=== PATIENT | female | born 1935 ===

== ENCOUNTER 2017-01-23 20:50 | Inpatient (IN) | payer MEDICARE, MEDICAID ==
[2017-01-23 20:54] VITALS: BMI 29.2
--- NOTE | 2017-01-23 21:03 | ED PDOC ---
Arrival/HPI - General Chief Complaint: Respiratory Distress Time Seen by Provider: 01/23/17 20:55 Historian: Patient - History of Present Illness Narrative History of Present Illness (Text): 01/23/17 21:03 Era Morgan is an 81 year old female, whose past medical history includes asthma , diabetes, and hypertension, who presents to the Emergency department complaining of worsening shortness of breath since yesterday. Relative reports associated cough and chest pain. Relative states symptoms are consistent with patient's previous episodes of asthma and notes patient had nebulizer treatments at home but denies any significant relief. Patient denies any fever, chills, nausea, vomiting, diarrhea, urinary symptoms, back pain, neck pain, headache, dizziness, or any other complaints. Time/Duration: Other (yesterday) Symptom Onset: Gradual Symptom Course: Worsening Activities at Onset: Rest, Light Context: Home Past Medical History - Provider Review Nursing Documentation Reviewed: Yes - Cardiac Hx Hypertension: Yes - Pulmonary Hx Asthma: Yes - Psychiatric Hx Substance Use: No Family/Social History - Physician Review Nursing Documentation Reviewed: Yes Family/Social History: No Known Family HX Smoking Status: n Hx Alcohol Use: No Hx Substance Use: No Allergies/Home Meds Allergies/Adverse Reactions: Allergies No Known Allergies Allergy (Verified 01/23/17 20:53) Home Medications: Home Meds Medication Instructions Recorded Confirmed Albuterol Sulfate [Proair Hfa] 200 puff IH PRN PRN 01/23/17 01/23/17 Beclomethasone Dipropionate [Qvar 1 puff IH DAILY 01/23/17 01/23/17 40 mcg] Budesonide/Formoterol Fumarate 1 aer IH DAILY 01/23/17 01/23/17 [Symbicort] amLODIPine [Norvasc] 10 mg PO DAILY 01/23/17 01/23/17 Review of Systems - Physician Review All systems were reviewed & negative as marked: Yes - Review of Systems Constitutional: Normal. absent: Fevers Eyes: Normal ENT: Normal Respiratory: SOB, Cough Cardiovascular: Chest Pain Gastrointestinal: Normal. absent: Abdominal Pain, Diarrhea, Nausea, Vomiting Genitourinary Female: Normal. absent: Dysuria, Frequency, Hematuria, Urine Output Changes Musculoskeletal: Normal. absent: Back Pain, Neck Pain Skin: Normal. absent: Rash Neurological: Normal. absent: Headache, Dizziness Endocrine: Normal Hemo/Lymphatic: Normal Psychiatric: Normal Physical Exam Vital Signs Reviewed: Yes Vital Signs Temp Pulse Resp BP Pulse Ox 01/24/17 01:05 83 18 152/76 H 94 L 01/24/17 00:05 81 19 176/76 H 94 L 01/23/17 21:50 97.9 F 62 18 145/77 98 01/23/17 20:55 20 93 L Temperature: Afebrile Blood Pressure: Normal Pulse: Regular Respiratory Rate: Normal Appearance: Positive for: Well-Appearing, Non-Toxic, Comfortable Pain Distress: None Mental Status: Positive for: Alert and Oriented X 3 - Systems Exam Head: Present: Atraumatic, Normocephalic Pupils: Present: PERRL Extroacular Muscles: Present: EOMI Conjunctiva: Present: Normal Mouth: Present: Moist Mucous Membranes Neck: Present: Normal Range of Motion Respiratory/Chest: Present: Wheezes. No: Respiratory Distress, Accessory Muscle Use Cardiovascular: Present: Regular Rate and Rhythm, Normal S1, S2. No: Murmurs Abdomen: Present: Normal Bowel Sounds. No: Tenderness, Distention, Peritoneal Signs Back: Present: Normal Inspection Upper Extremity: Present: Normal Inspection. No: Cyanosis, Edema Lower Extremity: Present: Normal Inspection. No: Edema Neurological: Present: GCS=15, CN II-XII Intact, Speech Normal Skin: Present: Warm, Dry, Normal Color. No: Rashes Psychiatric: Present: Alert, Oriented x 3, Normal Insight, Normal Concentration Medical Decision Making ED Course and Treatment: 01/23/17 21:03 Impression: 81 year old female complaining of worsening shortness of breath, cough, and chest pain since yesterday. Plan: -- EKG -- Chest X-ray -- Labs, cardiac enzymes, BNP, VBG, blood culture -- Duoneb -- Solu-medrol -- Reassess and disposition Progress Notes: Reviewed EKG, sinus rhythm at 83 bpm. Non-specific ST/T wave changes. 01/23/17 22:34 Reviewed radiology, Chest X-ray shows no acute processes. 01/23/17 23:20 Case discussed with medical tech supervisor reclamation, who is aware and verbalizes understanding. 01/23/17 23:[address] Vaughan, who is aware and agrees with plan. Accepts pt in to hospitalist service. Pt will go to Telemetry observation for asthma and chest pain. - Lab Interpretations Microbiology Results: Microbiology Results 01/23/17 22:10 Blood-Venous Blood Culture - Preliminary NO GROWTH AFTER 48 HOURS 01/23/17 21:45 Blood-Venous Blood Culture - Preliminary NO GROWTH AFTER 48 HOURS Lab Results: 01/24/17 05:44 01/24/17 05:44 Lab Results 01/24/17 16:00: POC Glucose (mg/dL) 326 H 01/24/17 10:58: POC Glucose (mg/dL) 418 H* 01/24/17 07:50: Procalcitonin < 0.05 L 01/24/17 07:17: POC Glucose (mg/dL) 394 H 01/24/17 05:44: WBC 9.1 D, RBC 4.82, Hgb 13.1, Hct 40.8, MCV 84.6, MCH 27.2, MCHC 32.1, RDW 14.2, Plt Count 242, MPV 10.6, Gran % 92.8 H, Lymph % (Auto) 6.6 L, [place] % (Auto) 0.4 L, Eos % (Auto) 0.0 L, Baso % (Auto) 0.2, Gran # 8.45 H, Lymph # 0.6 L, [place] # 0.0 L, Eos # 0.0, Baso # 0.02 01/24/17 05:44: Sodium 137, Chloride 99, Potassium 4.6, Carbon Dioxide 27, Anion Gap 16, BUN 13, Creatinine 0.6, Est GFR ( Amer) > 60, Est GFR (Non- Af Amer) > 60, Random Glucose 438 H* D, Calcium 9.6 01/24/17 05:44: Vitamin B12 296 01/24/17 05:44: Troponin I 0.02 D 01/24/17 05:44: TSH 3rd Generation 0.49 01/24/17 05:44: Hemoglobin A1c 10.3 H 01/24/17 00:50: pO2 165 H, VBG pH 7.40, VBG pCO2 50.0, VBG HCO3 31.0 H, VBG Total CO2 32.5 H, VBG O2 Sat (Calc) 98.5 H, VBG Base Excess 5.0 H, VBG Potassium 4.0, Sodium 138.0, Chloride 102.0, Glucose 347 H, Lactate 2.2 H, FiO2 21.0, Venous Blood Potassium 4.0 01/23/17 22:09: PT 10.4, INR 0.96, APTT 26.1 01/23/17 21:25: Sodium 138, Chloride 98, Potassium 3.9, Carbon Dioxide 29, Anion Gap 15, BUN 12, Creatinine 0.6, Est GFR ( Amer) > 60, Est GFR (Non- Af Amer) > 60, Random Glucose 307 H*, Calcium 9.8, Total Bilirubin 0.5, AST 24, ALT 38, Alkaline Phosphatase 112, Lactate Dehydrogenase 525, Total Creatine Kinase 90, Troponin I < 0.01, NT-Pro-B Natriuret Pep 160, Total Protein 8.0, Albumin 4.0, Globulin 4.0, Albumin/Globulin Ratio 1.0 L 01/23/17 21:25: pO2 109 H, VBG pH 7.37, VBG pCO2 53.0, VBG HCO3 30.6 H, VBG Total CO2 32.2 H, VBG O2 Sat (Calc) 98.2 H, VBG Base Excess 4.0 H, VBG Potassium 4.0, Sodium 136.0, Chloride 104.0, Glucose 310 H, Lactate 2.2 H, FiO2 21.0, Venous Blood Potassium 4.0 01/23/17 21:25: WBC 12.2 H, RBC 4.88, Hgb 13.6, Hct 41.6, MCV 85.2, MCH 27.9, MCHC 32.7, RDW 14.2, Plt Count 204, MPV 9.9, Gran % 63.5, Lymph % (Auto) 23.5, [place] % (Auto) 9.0 H, Eos % (Auto) 3.7, Baso % (Auto) 0.3, Gran # 7.72 H, Lymph # 2.9, [place] # 1.1 H, Eos # 0.5, Baso # 0.04 I have reviewed the lab results: Yes - RAD Interpretation Radiology Orders: 01/23/17 21:23 CHEST PORTABLE [RAD] Stat 01/24/17 00:54 ANGIO CHEST PE PROTOCOL [CT] Stat Assistant Professor Of Communication: ED Physician - EKG Interpretation Interpreted by ED Physician: Yes Type: 12 lead EKG - Medication Orders Current Medication Orders: Acetaminophen (Tylenol 325mg Tab) 650 mg PO Q4H PRN PRN Reason: Fever >100.4 F Last Admin: 01/26/17 06:09 Dose: 650 mg Re-Assess: MICHEL Pain/Vitals Document 01/26/17 07:09 MJO (Rec: 01/26/17 08:11 MJO [id number]) Pain Reassessment Is This A Pain ReAssessment? Yes Sleep Is patient sleeping during reassessment? No Presence of Pain Presence of Pain No Albuterol Sulfate (Albuterol 0.042% Inhal Do (1.25mg/3ml) Ud) 1.25 mg IH Q3 PRN PRN Reason: Shortness of Breath Albuterol/Ipratropium (Duoneb 3 Mg/0.5 Mg (3 Ml) Ud) 3 ml IH [id number] [facility] Last Admin: 01/26/17 15:17 Dose: 3 ml Amlodipine Besylate (Norvasc) 10 mg PO DAILY [facility] Last Admin: 01/26/17 09:18 Dose: 10 mg Budesonide (Pulmicort Respules) 0.5 mg IH [id number] [facility] Last Admin: 01/26/17 07:22 Dose: 0.5 mg Diphenhydramine HCl (Benadryl) 25 mg PO HS PRN PRN Reason: Insomnia Last Admin: 01/25/17 21:57 Dose: 25 mg Doxycycline Hyclate (Doryx) 100 mg PO Q12 JASMINA PRN Reason: Protocol Last Admin: 01/26/17 09:18 Dose: 100 mg Enoxaparin Sodium (Lovenox) 40 mg SC DAILY JASMINA PRN Reason: Protocol Last Admin: 01/26/17 09:18 Dose: 40 mg Insulin Detemir (Levemir) 7 unit SC Q12 [facility] Last Admin: 01/26/17 09:22 Dose: 7 unit Insulin Human Regular (Humulin R Med) 0 units SC ACHS JASMINA PRN Reason: Protocol Last Admin: 01/26/17 16:07 Dose: 8 units Methylprednisolone (Solu-Medrol) 40 mg IVP Q8H [facility] Last Admin: 01/26/17 14:16 Dose: 40 mg Pantoprazole Sodium (Protonix Ec Tab) 40 mg PO ACB [facility] Last Admin: 01/26/17 08:11 Dose: 40 mg Discontinued Medications Acetaminophen (Tylenol 325mg Tab) 650 mg PO Q6H PRN PRN Reason: Fever >100.4 F Last Admin: 01/24/17 03:01 Dose: 650 mg Albuterol Sulfate (Albuterol 0.5% Inhal Do (2.5 Mg/0.5 Ml) Ud) 2.5 mg IH [id number] [facility] Last Admin: 01/24/17 08:00 Dose: 2.5 mg Albuterol/Ipratropium (Duoneb 3 Mg/0.5 Mg (3 Ml) Ud) 3 ml IH Q15M [facility] Last Admin: 01/23/17 21:55 Dose: 3 ml Arformoterol Tartrate (Brovana) 15 mcg IH [id number] [facility] Last Admin: 01/24/17 08:00 Dose: 15 mcg Levofloxacin/Dextrose (Levaquin 750mg) 750 mg in 150 mls @ 100 mls/hr IVPB STAT STA Stop: 01/24/17 00:12 Last Admin: 01/23/17 22:56 Dose: 100 mls/hr Insulin Detemir (Levemir) 5 unit SC Q12 JASMINA Last Admin: 01/25/17 09:39 Dose: 5 unit Insulin Human Regular (Humulin R Low) 0 units SC ACHS JASMINA PRN Reason: Protocol Last Admin: 01/24/17 12:18 Dose: 7 units Iodixanol (Visipaque 320 Mg/Ml 100 Ml) Confirm Administered Dose 100 ml IV .STK- MED ONE Stop: 01/24/17 01:44 Methylprednisolone (Solu-Medrol) 125 mg IVP STAT STA Stop: 01/23/17 21:21 Last Admin: 01/23/17 21:38 Dose: 125 mg Methylprednisolone (Solu-Medrol) 40 mg IVP Q12 [facility] Last Admin: 01/24/17 10:05 Dose: 40 mg - Scribe Statement The provider has reviewed the documentation as recorded by the Scribwilian Munguia All medical record entries made by the Scribwilian were at my direction and personally dictated by me. I have reviewed the chart and agree that the record accurately reflects my personal performance of the history, physical exam, medical decision making, and the department course for this patient. I have also personally directed, reviewed, and agree with the discharge instructions and disposition. Disposition/Present on Arrival - Present on Arrival Any Indicators Present on Arrival: No History of DVT/PE: No History of Uncontrolled Diabetes: No Urinary Catheter: No History of Decub. Ulcer: No History Surgical Site Infection Following: None - Disposition Have Diagnosis and Disposition been Completed?: Yes Diagnosis: Asthma exacerbation Disposition: HOSPITALIZED Disposition Time: 23:00 Condition: FAIR
[2017-01-23] MEDS: Albuterol-Ipratrop 3 mg / 0.5 (3 ml) UD IH SCH ×3 (21:15→21:55)
[2017-01-23 21:38] LABS: ADD MANUAL DIFF? NO
[2017-01-23 21:56] LABS: ALKALINE PHOSPHATASE 112 U/L (38-133); ALT/SGPT 38 U/L (7-56); AST/SGOT 24 U/L (15-39); BILIRUBIN,TOTAL 0.5 mg/dL (0.2-1.3); BLOOD UREA NITROGEN 12 mg/dL (7-21); CALCIUM 9.8 mg/dL (8.4-10.5); CARBON DIOXIDE 29 mmol/L (21-33); CHLORIDE 98 mmol/L (98-107); GFR AFRICAN-AMERICAN > 60; POTASSIUM 3.9 mmol/L (3.6-5.0); SODIUM 138 mmol/L (132-148)
[2017-01-23 22:00] LABS: VENOUS BLOOD PH 7.37 (7.32-7.43)
[2017-01-23 22:05] LABS: GLUCOSE,RANDOM 307 mg/dL (70-110)
[2017-01-23 22:11] LABS: TROPONIN I < 0.01 ng/mL
[2017-01-23 22:17] LABS: BASO # 0.04 K/mm3 (0.0-2.0); BASO % 0.3 % (0.0-3.0); EOS # 0.5 (0.0-0.7); EOS % 3.7 % (1.5-5.0); GRAN # 7.72 (1.4-6.5); GRAN % 63.5 % (50.0-68.0); HEMATOCRIT 41.6 % (36.0-48.0); LYMPH # 2.9 (1.2-3.4); LYMPH % 23.5 % (22.0-35.0); MEAN CELL VOLUME 85.2 fL (80.0-105.0); MEAN CORPUSCULAR HEMOGLOBIN 27.9 pg (25.0-35.0); MEAN CORPUSCULAR HGB CONC 32.7 g/dl (31.0-37.0); MEAN PLATELET VOLUME 9.9 fl (7.0-11.0); MONO # 1.1 (0.1-0.6); PLATELET COUNT 204 10^3/uL (120.0-450.0); RED CELL DISTRIBUTION WIDTH 14.2 % (11.5-14.5); WHITE BLOOD COUNT 12.2 10^3/ul (4.5-11.0)
[2017-01-23] MEDS ORDERED: levoFLOXacin 750 mg in D5W 750 MG/150 ML BAG IVPB STA (22:43)
[2017-01-23 22:50] LABS: INR 0.96 (0.93-1.08)
[2017-01-23 22:54] LABS: PARTIAL THROMBOPLASTIN TIME 26.1 Seconds (23.7-30.8)
[2017-01-24] MEDS ORDERED: Albuterol 0.042% Inhal Sol (1.25 mg/3 mL) UD IH PRN (01:36)
[2017-01-24] MEDS ORDERED: Iodixanol 320 MG/ML 100 ML BOTTLE IV ONE (01:43)
[2017-01-24] MEDS: Albuterol 0.5% Inhal Sol (2.5 mg/0.5 ml) UD IH SCH ×2 (03:04→08:00)
--- NOTE | 2017-01-24 03:14 | CT ---
EXAM: CT Angiography Chest With Intravenous Contrast CLINICAL HISTORY: 81 years old, female; Signs and symptoms; Shortness of breath TECHNIQUE: Axial computed tomographic angiography images of the chest with intravenous contrast using pulmonary embolism protocol. This CT exam was performed using one or more of the following dose reduction techniques: automated exposure control, adjustment of the mA and/or kV according to patient size, and/or use of iterative reconstruction technique. MIP reconstructed images were created and reviewed. Coronal and sagittal reformatted images were created and reviewed. CONTRAST: 96 mL of VISI 320 administered intravenously. COMPARISON: CR - CHEST PORTABLE 01/23/2017 9:32:45 PM FINDINGS: Limitations: Motion artifact - mild to moderate. Pulmonary arteries: No definite pulmonary embolism. Aorta: Mild atherosclerotic disease of aorta. No aortic aneurysm. Lungs: Mild atelectasis/scarring, most pronounced LEFT lung base. Apparent 0.5 cm spiculated RIGHT upper lobe nodule. Mild mosaic pattern of lung parenchyma. Mild interlobular septal thickening. Pleural space: No significant effusion. No pneumothorax. Heart: Borderline cardiomegaly. No significant pericardial effusion. Mediastinum: Small hiatal hernia. Thyroid: Heterogeneity of thyroid gland. Bones/joints: Degenerative changes of spine. Curvature of spine. No acute fracture. Soft tissues: Unremarkable. Lymph nodes: No pathologically enlarged lymph nodes. Kidneys and ureters: Few probable renal cysts. IMPRESSION: 1. No definite CT evidence of pulmonary embolism. 2. Possible early interstitial edema. Clinical correlation is needed. 3. Pulmonary nodule, indeterminate. Followup as clinically warranted. 4. Incidental/non-acute findings are described above.
--- NOTE | 2017-01-24 03:19 | CP.PCM.HP ---
<Alireza Peña - Last Filed: 01/24/17 02:56> History of Present Illness - History of Present Illness History of Present Illness: 81 year old female with past medical history of asthma, hypertension, diabetes, and PE presents to [facility] complaining of worsening shortness and coughs. Patient 's daughter was present to provide history and German interpretation. Patient developed shortness of breath, chest pain, wheezes and coughs 1 day ago while patient was resting. Patient is visiting her daughter at [place] from [facility] 1 week ago. Per daughter, patient's symptoms are similar to previous asthma exacerbations but never this severe. Patient have used her asthmatic medications at home but all provided no relief. Patient was never intubated in past. Patient was admitted to [facility] in [facility] for PE 1 year ago. She was place on blood thinner for 6 months and currently not taking any blood thinner medications. At baseline, patient becomes shortness of breath whenever she ambulates. In the ED, patient received one dose of solumedrol IV which improved her symptoms. Patient denies headache, weakness, fever, chills, nausea , vomiting, diarrhea, constipation, or sick contacts at home. PMD: Dr. Quick PMHx: asthma, hypertension, diabetes, and PE PSHx: tubal ligation Allergy: NKDA Social: denies tobacco, alcohol or other drug use Family: Mother-asthma Home meds: Norvasc, montelukast, vanumet, symblcort, proair Present on Admission - Present on Admission Any Indicators Present on Admission: Yes History of DVT/PE: Yes History of Uncontrolled Diabetes: No Review of Systems - Constitutional Constitutional: As Per HPI. absent: Fever, Headache, Lethargy - EENT Eyes: As Per HPI. absent: Blind Spots, Discharge, Dry Eye Ears: As Per HPI. absent: Dizziness Nose/Mouth/Throat: As Per HPI. absent: Nasal Discharge, Sinus Pain, Dry Mouth - Cardiovascular Cardiovascular: As Per HPI. absent: Lightheadedness, Syncope - Respiratory Respiratory: As Per HPI, Cough, Dyspnea, Wheezing, Chest Congestion. absent: Hemoptysis - Gastrointestinal Gastrointestinal: As Per HPI. absent: Constipation, Diarrhea, Nausea, Vomiting - Genitourinary Genitourinary: As Per HPI. absent: Urinary Incontinence, Urinary Frequency, Urinary Hesitance - Musculoskeletal Musculoskeletal: As Per HPI. absent: Back Pain, Numbness, Tingling - Integumentary Integumentary: As Per HPI. absent: Dry Skin, Erythema, Lesions - Neurological Neurological: As Per HPI. absent: Dizziness, Numbness, Syncope, Tingling, Tremor - Psychiatric Psychiatric: As Per HPI. absent: Confusion, Depression, Hallucinations, Memory Loss - Endocrine Endocrine: As Per HPI. absent: Polydipsia, Polyphagia, Polyuria - Hematologic/Lymphatic Hematologic: As Per HPI Past Patient History - Past Social History Smoking Status: n - CARDIAC Hx Hypertension: Yes - PULMONARY Hx Asthma: Yes - PSYCHIATRIC Hx Substance Use: No Meds Allergies/Adverse Reactions: Allergies Allergy/AdvReac Type Severity Reaction Status Date / Time No Known Allergies Allergy Verified 01/23/17 20:53 Physical Exam - Constitutional Appears: Non-toxic, No Acute Distress - Head Exam Head Exam: ATRAUMATIC, NORMAL INSPECTION, NORMOCEPHALIC - Eye Exam Eye Exam: EOMI, Normal appearance, PERRL - ENT Exam ENT Exam: Mucous Membranes Moist - Neck Exam Neck exam: Positive for: Normal Inspection - Respiratory Exam Respiratory Exam: Clear to Auscultation Bilateral, NORMAL BREATHING PATTERN. absent: Respiratory Distress - Cardiovascular Exam Cardiovascular Exam: REGULAR RHYTHM, +S1, +S2 - GI/Abdominal Exam GI & Abdominal Exam: Normal Bowel Sounds, Soft. absent: Tenderness - Extremities Exam Extremities exam: Positive for: normal capillary refill, normal inspection, pedal edema, pedal pulses present - Back Exam Back exam: NORMAL INSPECTION - Neurological Exam Neurological exam: Alert, CN II-XII Intact, Oriented x3 - Psychiatric Exam Psychiatric exam: Normal Affect, Normal Mood - Skin Skin Exam: Dry, Normal Color, Warm Results - Vital Signs Recent Vital Signs: Last Vital Signs Temp 97.9 F 01/23/17 21:50 Pulse 83 01/24/17 01:05 Resp 18 01/24/17 01:05 BP 152/76 H 01/24/17 01:05 Pulse Ox 94 L 01/24/17 01:05 - Labs Result Diagrams: 01/23/17 21:25 01/23/17 21:25 Labs: Laboratory Results - last 24 hr 01/23/17 01/23/17 01/23/17 21:25 21:25 21:25 WBC 12.2 H RBC 4.88 Hgb 13.6 Hct 41.6 MCV 85.2 MCH 27.9 MCHC 32.7 RDW 14.2 Plt Count 204 MPV 9.9 Gran % 63.5 Lymph % (Auto) 23.5 [place] % (Auto) 9.0 H Eos % (Auto) 3.7 Baso % (Auto) 0.3 Gran # 7.72 H Lymph # 2.9 [place] # 1.1 H Eos # 0.5 Baso # 0.04 PT INR APTT pO2 109 H VBG pH 7.37 VBG pCO2 53.0 VBG HCO3 30.6 H VBG Total CO2 32.2 H VBG O2 Sat (Calc) 98.2 H VBG Base Excess 4.0 H VBG Potassium 4.0 Sodium 136.0 138 Chloride 104.0 98 Glucose 310 H Lactate 2.2 H FiO2 21.0 Potassium 3.9 Carbon Dioxide 29 Anion Gap 15 BUN 12 Creatinine 0.6 Est GFR ( Amer) > 60 Est GFR (Non-Af Amer) > 60 Random Glucose 307 H* Calcium 9.8 Total Bilirubin 0.5 AST 24 ALT 38 Alkaline Phosphatase 112 Lactate Dehydrogenase 525 Total Creatine Kinase 90 Troponin I < 0.01 NT-Pro-B Natriuret Pep 160 Total Protein 8.0 Albumin 4.0 Globulin 4.0 Albumin/Globulin Ratio 1.0 L Venous Blood Potassium 4.0 01/23/17 01/24/17 22:09 00:50 WBC RBC Hgb Hct MCV MCH MCHC RDW Plt Count MPV Gran % Lymph % (Auto) [place] % (Auto) Eos % (Auto) Baso % (Auto) Gran # Lymph # [place] # Eos # Baso # PT 10.4 INR 0.96 APTT 26.1 pO2 165 H VBG pH 7.40 VBG pCO2 50.0 VBG HCO3 31.0 H VBG Total CO2 32.5 H VBG O2 Sat (Calc) 98.5 H VBG Base Excess 5.0 H VBG Potassium 4.0 Sodium 138.0 Chloride 102.0 Glucose 347 H Lactate 2.2 H FiO2 21.0 Potassium Carbon Dioxide Anion Gap BUN Creatinine Est GFR ( Amer) Est GFR (Non-Af Amer) Random Glucose Calcium Total Bilirubin AST ALT Alkaline Phosphatase Lactate Dehydrogenase Total Creatine Kinase Troponin I NT-Pro-B Natriuret Pep Total Protein Albumin Globulin Albumin/Globulin Ratio Venous Blood Potassium 4.0 Assessment & Plan - Assessment and Plan (Free Text) Assessment: 81 year old female with past medical history of asthma, HTN, DM and PE was admitted for shortness of breath likely secondary to asthma exacerbation Plan: Shortness of breath -likely Asthma exacerbation vs PNA -Received solumedrol and levaquin in the ED -CXR showed no active disease -CT chest showed no evidence of PE, possible early interstitial edema, indeterminate pulmonary nodule (please see full report) -Albuterol 1.25mg q3/2.5mg q6 prn -pulmicort 0.5mg q12h -Brovana 15mcg q12h -Prednisone 40mg po -Follow up echocardiogram -Follow up TSH Leukocytosis -WBC 12.2, afebrile -Follow up blood culture Diabetes -Currently not on DM meds -Consistent carbohydrate diet -Pending A1c -FS ACHS Hypertension -Resume home Norvasc Prophylactic measures -Protonix for GI ppx -Lovenox for DVT ppx <Butch Vaughan P - Last Filed: 02/03/17 19:38> Results - Vital Signs Recent Vital Signs: Last Vital Signs Temp 98.1 F 01/28/17 08:00 Pulse 71 01/28/17 09:55 Resp 19 01/28/17 08:00 BP 140/63 01/28/17 09:55 Pulse Ox 94 L 01/28/17 08:00 - Labs Result Diagrams: 01/28/17 06:30 01/28/17 06:30 Attending/Attestation - Attestation I have personally seen and examined this patient.: Yes I have fully participated in the care of the patient.: Yes I have reviewed all pertinent clinical information: Yes
[2017-01-24 06:43] LABS: ADD MANUAL DIFF? NO
[2017-01-24 06:53] LABS: BLOOD UREA NITROGEN 13 mg/dL (7-21); CALCIUM 9.6 mg/dL (8.4-10.5); CARBON DIOXIDE 27 mmol/L (21-33); CHLORIDE 99 mmol/L (98-107); GFR AFRICAN-AMERICAN > 60; POTASSIUM 4.6 mmol/L (3.6-5.0); SODIUM 137 mmol/L (132-148)
[2017-01-24 07:03] LABS: BASO # 0.02 K/mm3 (0.0-2.0); BASO % 0.2 % (0.0-3.0); GRAN # 8.45 (1.4-6.5); GRAN % 92.8 % (50.0-68.0); HEMATOCRIT 40.8 % (36.0-48.0); LYMPH # 0.6 (1.2-3.4); LYMPH % 6.6 % (22.0-35.0); MEAN CELL VOLUME 84.6 fL (80.0-105.0); MEAN CORPUSCULAR HEMOGLOBIN 27.2 pg (25.0-35.0); MEAN CORPUSCULAR HGB CONC 32.1 g/dl (31.0-37.0); MEAN PLATELET VOLUME 10.6 fl (7.0-11.0); MONO % 0.4 % (1.0-6.0); PLATELET COUNT 242 10^3/uL (120.0-450.0); RED CELL DISTRIBUTION WIDTH 14.2 % (11.5-14.5); WHITE BLOOD COUNT 9.1 10^3/ul (4.5-11.0)
[2017-01-24 07:30] LABS: GLUCOSE,RANDOM 438 mg/dL (70-110)
[2017-01-24] MEDS: Pantoprazole 40 mg EC Tab PO SCH (07:45)
[2017-01-24] MEDS ORDERED: Arformoterol 15 mcg/2 ml Inh Sol IH SCH (08:00)
[2017-01-24] MEDS: Budesonide 0.5 mg/2 ml Inhal Susp UD IH SCH (08:00)
--- NOTE | 2017-01-24 08:18 | RAD ---
HISTORY: sob COMPARISON: No prior. FINDINGS: LUNGS: No active pulmonary disease. PLEURA: No significant pleural effusion identified, no pneumothorax apparent. CARDIOVASCULAR: Mild cardiomegaly OSSEOUS STRUCTURES: No significant abnormalities. VISUALIZED UPPER ABDOMEN: Normal. OTHER FINDINGS: None. IMPRESSION: No active disease.
[2017-01-24] MEDS ORDERED: cefTRIAXone 1 gm 1 GM/100 ML BAG IVPB SCH (10:00)
[2017-01-24] MEDS ORDERED: MethylPREDNISolone 40 mg Vial IVP SCH (10:00)
[2017-01-24] MEDS: Enoxaparin 40 mg Syringe SC SCH (10:05)
--- NOTE | 2017-01-24 10:41 | CARD ---
APPROVED REPORT EKG Measurement Heart [id number] <Conclusion> Sinus rhythm with premature supraventricular complexes Nonspecific ST and T wave abnormality
[2017-01-24] MEDS ORDERED: Insulin Reg-LOW-Coverage SC SCH (11:30)
[2017-01-24] MEDS: Albuterol-Ipratrop 3 mg / 0.5 (3 ml) UD IH SCH ×3 (15:01→23:11)
--- NOTE | 2017-01-24 15:18 | CON ---
DATE: 01/24/2017 This is an 81-year-old lady with history of diabetes and asthma who presented to [facility], [place] with a 2-day history of increased shortness of breath , wheezing, cough with some whitish sputum production. The amount and quality of sputum increased. Her exercise tolerance decreased. Her symptoms progressed to the point that she was seeking medical attention at [facility], [place]. No fever, no chills, no sweats, no nausea, no vomiting, no diarrhea. Some pleuritic chest pain which prompted a CAT scan of the chest to be performed. It did not reveal any pulmonary embolism; however, showed 0.5 cm nodule in the right upper lobe as well as some scar/atelectasis in the left lower lobe. PAST MEDICAL HISTORY: Diabetes, asthma. MEDICATIONS: Albuterol, Symbicort, Norvasc. FAMILY HISTORY: Noncontributory. SOCIAL HISTORY: The patient is a lifelong nonsmoker. No alcohol, no illicit drug abuse. REVIEW OF SYSTEMS: Revealed 12 organ system other than mentioned in history of present illness is negative. ALLERGIES: NKDA. PHYSICAL EXAMINATION: VITAL SIGNS: Temperature 98.3, blood pressure 153/77, heart rate 77, respiratory rate 19, oxygen saturation 96% on nasal cannula. HEAD AND NECK: Atraumatic. LUNGS: Scattered wheezes bilaterally, plenty. HEART: Regular rate and rhythm. S1, S2 normal. ABDOMEN: Soft, nontender, nondistended. MUSCULOSKELETAL: No C/C/E. NEUROLOGIC: The patient moves all extremities spontaneously. SKIN: Moist. PSYCHIATRIC: The patient is alert and oriented x 3. LABORATORY DATA: WBC 9.1, hemoglobin 13.1, platelet count 242. Sodium 137, potassium 4.6, chloride 99, carbon dioxide 27, BUN 13, creatinine 0.6, glucose 438, calcium 9.6. Troponin 0.02 x 2 negative. TSH 0.49. VBG showed lactic acid 2.2. CURRENT MEDICATIONS: Tylenol p.r.n., DuoNeb every 6, Norvasc, Brovana, Pulmicort, doxycycline, Lovenox 40 mg subcutaneously daily, regular insulin sliding scale medium protocol, Solu-Medrol 40 mg IV q. 12, Protonix. CAT scan of the chest showed no definite CT evidence of pulmonary embolism and possible early interstitial edema. Clinical correlation is needed. Pulmonary nodule, indeterminate, followup is clinically warranted. Echocardiogram was performed and report is pending. EKG showed no specific ischemic changes. Sinus rhythm with premature supraventricular complexes. ASSESSMENT AND PLAN: This is an 81-year-old lady who presented with asthma exacerbation in the setting of questionable community-acquired pneumonia. I will proceed with antibiotics, steroid taper, bronchodilators. I would continue with inhaled corticosteroids. I will continue with bronchodilators. Blood glucose has to be controlled a little bit better. I would increase coverage to high sliding scale, and add basal long acting insulin. In terms of her 0.5 mm spiculated nodule, it has to be followed as an outpatient. I would repeat CAT scan in about 3 months. Differential diagnosis includes scar tissue and infectious etiology. Malignancy cannot be ruled out and thus a CAT scan in 3 months would be recommended. Even though it is less than 6 mm nodule stability over 2 year period has to be established. The patient needs to be seen by pulmonary doctor to follow up on the nodule on an outpatient basis. Echocardiogram is pending. ProBNP is not elevated. I would hold diuretics at present time. Troponin x 2 negative. EKG did not show any specific ischemic changes. I would continue to target euvolemia, euglycemia, normothermia and oxygen saturation more than 90%. I will continue with deep venous thrombosis and gastrointestinal prophylaxis. Antony Pak MD cc: [id number] TT: 01/24/2017 15:17:39 Confirmation # [id number] Dictation # [id number] kristopher PASTOR
[2017-01-24] MEDS: MethylPREDNISolone 40 mg Vial IVP SCH ×2 (15:55→22:32)
[2017-01-24] MEDS: Insulin Reg-MEDIUM-Coverage SC SCH ×2 (16:55→22:26)
[2017-01-25] MEDS: Albuterol-Ipratrop 3 mg / 0.5 (3 ml) UD IH SCH ×5 (04:00→20:24)
[2017-01-25] MEDS: Budesonide 0.5 mg/2 ml Inhal Susp UD IH SCH ×2 (07:17→20:25)
[2017-01-25] MEDS: MethylPREDNISolone 40 mg Vial IVP SCH ×3 (08:00→22:04)
[2017-01-25] MEDS: Pantoprazole 40 mg EC Tab PO SCH (08:01)
[2017-01-25 08:05] LABS: ADD MANUAL DIFF? NO
[2017-01-25 08:06] LABS: BASO # 0.01 K/mm3 (0.0-2.0); BASO % 0.1 % (0.0-3.0); GRAN # 14.23 (1.4-6.5); GRAN % 89.1 % (50.0-68.0); HEMATOCRIT 40.1 % (36.0-48.0); LYMPH # 1.2 (1.2-3.4); LYMPH % 7.6 % (22.0-35.0); MEAN CELL VOLUME 83.4 fL (80.0-105.0); MEAN CORPUSCULAR HEMOGLOBIN 27.4 pg (25.0-35.0); MEAN CORPUSCULAR HGB CONC 32.9 g/dl (31.0-37.0); MEAN PLATELET VOLUME 10.1 fl (7.0-11.0); MONO # 0.5 (0.1-0.6); MONO % 3.2 % (1.0-6.0); PLATELET COUNT 241 10^3/uL (120.0-450.0); RED CELL DISTRIBUTION WIDTH 14.2 % (11.5-14.5)
[2017-01-25] MEDS: Insulin Reg-MEDIUM-Coverage SC SCH ×4 (08:30→21:57)
[2017-01-25 09:14] LABS: ALB/GLOB RATIO 1.1 (1.1-1.8); ALKALINE PHOSPHATASE 107 U/L (38-133); ALT/SGPT 37 U/L (7-56); AST/SGOT 24 U/L (15-39); BILIRUBIN,TOTAL 0.6 mg/dL (0.2-1.3); BLOOD UREA NITROGEN 24 mg/dL (7-21); CALCIUM 9.9 mg/dL (8.4-10.5); CARBON DIOXIDE 28 mmol/L (21-33); CHLORIDE 100 mmol/L (98-107); GFR AFRICAN-AMERICAN > 60; POTASSIUM 4.3 mmol/L (3.6-5.0); SODIUM 138 mmol/L (132-148); TOTAL PROTEIN 7.4 g/dL (5.8-8.3)
[2017-01-25 09:25] LABS: GLUCOSE,RANDOM 407 mg/dL (70-110)
[2017-01-25] MEDS: Enoxaparin 40 mg Syringe SC SCH (09:38)
[2017-01-25] MEDS ORDERED: Insulin Detemir 100 units/ml Vial (Levemir) SC SCH (10:00)
--- NOTE | 2017-01-25 10:46 | CARD ---
APPROVED REPORT EXAM: Two-dimensional and M-mode echocardiogram with Doppler and color Doppler. Other Information Quality : GoodRhythm : INDICATION Dyspnea 2D DIMENSIONS Left Atrium (2D)4.3 (1.6-4.0cm)IVSd1.2 (0.7-1.1cm) LVDd4.3 (3.9-5.9cm)PWd1.2 (0.7-1.1cm) LVDs2.6 (2.5-4.0cm)FS (%) 40.6 % LVEF (%)71.0 (>50%) M-Mode DIMENSIONS Aortic Root3.40 (2.2-3.7cm)Aortic Cusp Exc.1.60 (1.5-2.0cm) Aortic Valve AoV Peak Cloytlfw264.0cm/sAoV VTI46.6cmLVOT Peak Regezdls535.0cm/s LVOT VTI39.00cm Mitral Valve MV E Oarokupw34.5cm/sMV A Tjfcbidy549.0cm/sE/A ratio0.7 TDI Lateral E' Peak V6.82cm/sMedial E' Peak V6.97cm/sE/Lateral E'12.0 E/Medial E'11.7 Pulmonary Valve PV Peak Ldbggtzy49.3cm/sPV Peak Grad.3mmHg Tricuspid Valve TR Peak Fuvyhuvj315ko/sRAP VDKJNWNS28ybLgCC Peak Gr.44mmHg [id number] LEFT VENTRICLE The left ventricle is normal size. There is mild concentric left ventricular hypertrophy. The left ventricular function is normal. The left ventricular ejection fraction is within the normal range. There is normal LV segmental wall motion. RIGHT VENTRICLE The right ventricle is normal size. ATRIA The left atrium is mildly dilated. The right atrium size is normal. The interatrial septum is intact with no evidence for an atrial septal defect. AORTIC VALVE The aortic valve is mildly calcified. MITRAL VALVE The mitral valve is normal in structure. Mitral regurgitation is trace. TRICUSPID VALVE The tricuspid valve is normal in structure. There is mild to moderate tricuspid regurgitation. There is moderate pulmonary hypertension. PULMONIC VALVE The pulmonic valve is not well visualized. GREAT VESSELS The aortic root is normal in size. PERICARDIAL EFFUSION There is no pericardial effusion. <Conclusion> The left ventricle is normal size. There is mild concentric left ventricular hypertrophy. The left ventricular function is normal. There is mild to moderate tricuspid regurgitation. There is moderate pulmonary hypertension.
--- NOTE | 2017-01-25 13:35 | CP.PCM.PN ---
Subjective - Date & Time of Evaluation Date of Evaluation: 01/25/17 Time of Evaluation: 13:15 - Subjective Subjective: 81 Y/O F seen sitting up in bed w/o distress talking to her neighbor No acute events overnight No productive sputum. SOB improved and patient is able to walk in her room. Still has some baseline wheezing. Objective - Vital Signs/Intake and Output Vital Signs (last 24 hours): Temp Pulse Resp BP Pulse Ox 98.6 F 72 20 146/76 93 L 01/25/17 12:00 01/25/17 12:00 01/25/17 12:00 01/25/17 12:00 01/25/17 06:00 Intake and Output: 01/25/17 01/25/17 06:59 18:59 Intake Total 360 Balance 360 - Medications Medications: Current Medications Acetaminophen (Tylenol 325mg Tab) 650 mg PO Q4H PRN PRN Reason: Fever >100.4 F Last Admin: 01/24/17 06:32 Dose: 650 mg Albuterol Sulfate (Albuterol 0.042% Inhal Do (1.25mg/3ml) Ud) 1.25 mg IH Q3 PRN PRN Reason: Shortness of Breath Albuterol/Ipratropium (Duoneb 3 Mg/0.5 Mg (3 Ml) Ud) 3 ml IH [id number] [facility] Last Admin: 01/25/17 11:46 Dose: 3 ml Amlodipine Besylate (Norvasc) 10 mg PO DAILY [facility] Last Admin: 01/25/17 09:38 Dose: 10 mg Budesonide (Pulmicort Respules) 0.5 mg IH [id number] [facility] Last Admin: 01/25/17 07:17 Dose: 0.5 mg Diphenhydramine HCl (Benadryl) 25 mg PO HS PRN PRN Reason: Insomnia Last Admin: 01/24/17 22:27 Dose: 25 mg Doxycycline Hyclate (Doryx) 100 mg PO Q12 [facility] PRN Reason: Protocol Last Admin: 01/25/17 09:38 Dose: 100 mg Enoxaparin Sodium (Lovenox) 40 mg SC DAILY [facility] PRN Reason: Protocol Last Admin: 01/25/17 09:38 Dose: 40 mg Insulin Detemir (Levemir) 7 unit SC Q12 [facility] Insulin Human Regular (Humulin R Med) 0 units SC ACHS [facility] PRN Reason: Protocol Last Admin: 01/25/17 12:09 Dose: 8 units Methylprednisolone (Solu-Medrol) 40 mg IVP Q8H [facility] Last Admin: 01/25/17 08:00 Dose: 40 mg Pantoprazole Sodium (Protonix Ec Tab) 40 mg PO ACB [facility] Last Admin: 01/25/17 08:01 Dose: 40 mg - Labs Labs: 01/25/17 08:00 01/25/17 08:00 PT 10.4 Seconds (9.9-11.8) 01/23/17 22:09 INR 0.96 (0.93-1.08) 01/23/17 22:09 APTT 26.1 Seconds (23.7-30.8) 01/23/17 22:09 - Constitutional Appears: Well - Head Exam Head Exam: ATRAUMATIC, NORMAL INSPECTION - Eye Exam Eye Exam: EOMI, Normal appearance Pupil Exam: NORMAL ACCOMODATION, PERRL - ENT Exam ENT Exam: Mucous Membranes Moist, Normal Exam - Neck Exam Neck Exam: Normal Inspection - Respiratory Exam Respiratory Exam: Clear to Ausculation Bilateral, Wheezes - Cardiovascular Exam Cardiovascular Exam: REGULAR RHYTHM - GI/Abdominal Exam GI & Abdominal Exam: Soft, Normal Bowel Sounds - Rectal Exam Rectal Exam: NORMAL INSPECTION - Extremities Exam Extremities Exam: Full ROM - Back Exam Back Exam: NORMAL INSPECTION Assessment and Plan - Assessment and Plan (Free Text) Assessment: 81 y/o F w/ Asthma Exacerbation possibly in the setting of URI On empiric abx w/ cx pending. Viral panel sent. On ICH and Albuterol prn. Continue Solumedrol BID as the patient is still wheezing between nebulizer treatments. Would need PFT post 2 weeks of discharge to quantify her Asthma and monitor her control medications. At home was on Advair bid , Albuterol Inhaler and Nebs. F/U CT chest due to Fleischner guidelines .
--- NOTE | 2017-01-25 15:55 | CP.PCM.PN ---
<Jyoti Crowe - Last Filed: 01/25/17 16:34> Subjective - Date & Time of Evaluation Date of Evaluation: 01/25/17 Time of Evaluation: 11:00 - Subjective Subjective: PGY-1 Medicine progress note Patient seen and examined at bedside. No acute distress. Patient states that she is doing better and is no longer SOB. She denies any chest pain, abd pain, fever, chill, n/v. She reports occasional headache. Patient is tolerating diet. Objective - Vital Signs/Intake and Output Vital Signs (last 24 hours): Temp Pulse Resp BP Pulse Ox 98.6 F 72 20 146/76 93 L 01/25/17 12:00 01/25/17 12:00 01/25/17 12:00 01/25/17 12:00 01/25/17 06:00 Intake and Output: 01/25/17 01/25/17 06:59 18:59 Intake Total 360 Balance 360 - Medications Medications: Current Medications Acetaminophen (Tylenol 325mg Tab) 650 mg PO Q4H PRN PRN Reason: Fever >100.4 F Last Admin: 01/24/17 06:32 Dose: 650 mg Albuterol Sulfate (Albuterol 0.042% Inhal Do (1.25mg/3ml) Ud) 1.25 mg IH Q3 PRN PRN Reason: Shortness of Breath Albuterol/Ipratropium (Duoneb 3 Mg/0.5 Mg (3 Ml) Ud) 3 ml IH [id number] [facility] Last Admin: 01/25/17 15:52 Dose: 3 ml Amlodipine Besylate (Norvasc) 10 mg PO DAILY [facility] Last Admin: 01/25/17 09:38 Dose: 10 mg Budesonide (Pulmicort Respules) 0.5 mg IH [id number] [facility] Last Admin: 01/25/17 07:17 Dose: 0.5 mg Diphenhydramine HCl (Benadryl) 25 mg PO HS PRN PRN Reason: Insomnia Last Admin: 01/24/17 22:27 Dose: 25 mg Doxycycline Hyclate (Doryx) 100 mg PO Q12 [facility] PRN Reason: Protocol Last Admin: 01/25/17 09:38 Dose: 100 mg Enoxaparin Sodium (Lovenox) 40 mg SC DAILY [facility] PRN Reason: Protocol Last Admin: 01/25/17 09:38 Dose: 40 mg Insulin Detemir (Levemir) 7 unit SC Q12 [facility] Insulin Human Regular (Humulin R Med) 0 units SC ACHS [facility] PRN Reason: Protocol Last Admin: 01/25/17 12:09 Dose: 8 units Methylprednisolone (Solu-Medrol) 40 mg IVP Q8H [facility] Last Admin: 01/25/17 15:06 Dose: 40 mg Pantoprazole Sodium (Protonix Ec Tab) 40 mg PO ACB [facility] Last Admin: 01/25/17 08:01 Dose: 40 mg - Labs Labs: 01/25/17 08:00 01/25/17 08:00 PT 10.4 Seconds (9.9-11.8) 01/23/17 22:09 INR 0.96 (0.93-1.08) 01/23/17 22:09 APTT 26.1 Seconds (23.7-30.8) 01/23/17 22:09 - Constitutional Appears: Well, No Acute Distress - Head Exam Head Exam: ATRAUMATIC, NORMOCEPHALIC - Eye Exam Eye Exam: Normal appearance - ENT Exam ENT Exam: Mucous Membranes Moist - Respiratory Exam Respiratory Exam: Wheezes (throughout lung field ), NORMAL BREATHING PATTERN. absent: Rales, Rhonchi, Respiratory Distress - Cardiovascular Exam Cardiovascular Exam: REGULAR RHYTHM. absent: Tachycardia, Murmur - GI/Abdominal Exam GI & Abdominal Exam: Soft, Normal Bowel Sounds. absent: Distended, Firm, Tenderness - Extremities Exam Extremities Exam: Normal Inspection. absent: Pedal Edema - Neurological Exam Neurological Exam: Alert, Awake, Oriented x3 - Skin Skin Exam: Dry, Intact, Normal Color, Warm Assessment and Plan - Assessment and Plan (Free Text) Assessment: 81 year old female with past medical history of asthma, HTN, DM and PE was admitted for asthma exacerbation, with possible infection. Plan: 1. Asthma exacerbation - conts to having wheezes - CXR showed no active disease - CT chest showed no evidence of PE, possible early interstitial edema, indeterminate pulmonary nodule (please see full report) - cont Albuterol 1.25mg q3/2.5mg q6 prn - cont pulmicort 0.5mg q12h, Brovana 15mcg q12h - cont solu- medrol 40 mg q8 - echo showed EF of 71%, moderate pulmonary HTN, mild left ventricular hypertrophy - TSH wnl - pulm following - outpatient CT chest in 3 mo for pulm nodule 2. Leukocytosis - WBC 16, afebrile, most likely due to steroids - blood culture neg after 24 ho - procal low - cont doxycylcine 3. Diabetes - not on home meds - Consistent carbohydrate diet - hgbA1c 10.3 - started levemir 7 units q12 - ISSS- med - diabetic education on injectable insulin 4. Hypertension - cont home Norvasc pt transferred to med/surg floor Prophylactic measures -Protonix for GI ppx -Lovenox for DVT ppx <Nenita Crocker B - Last Filed: 01/26/17 15:16> Objective - Vital Signs/Intake and Output Vital Signs (last 24 hours): Temp Pulse Resp BP Pulse Ox 97.9 F 78 18 151/86 H 96 01/26/17 07:30 01/26/17 07:30 01/26/17 07:30 01/26/17 09:18 01/26/17 07:30 Intake and Output: 01/26/17 01/26/17 06:59 18:59 Intake Total 600 Balance 600 - Medications Medications: Current Medications Acetaminophen (Tylenol 325mg Tab) 650 mg PO Q4H PRN PRN Reason: Fever >100.4 F Last Admin: 01/26/17 06:09 Dose: 650 mg Albuterol Sulfate (Albuterol 0.042% Inhal Do (1.25mg/3ml) Ud) 1.25 mg IH Q3 PRN PRN Reason: Shortness of Breath Albuterol/Ipratropium (Duoneb 3 Mg/0.5 Mg (3 Ml) Ud) 3 ml IH [id number] [facility] Last Admin: 01/26/17 11:25 Dose: 3 ml Amlodipine Besylate (Norvasc) 10 mg PO DAILY [facility] Last Admin: 01/26/17 09:18 Dose: 10 mg Budesonide (Pulmicort Respules) 0.5 mg IH [id number] [facility] Last Admin: 01/26/17 07:22 Dose: 0.5 mg Diphenhydramine HCl (Benadryl) 25 mg PO HS PRN PRN Reason: Insomnia Last Admin: 01/25/17 21:57 Dose: 25 mg Doxycycline Hyclate (Doryx) 100 mg PO Q12 [facility] PRN Reason: Protocol Last Admin: 01/26/17 09:18 Dose: 100 mg Enoxaparin Sodium (Lovenox) 40 mg SC DAILY [facility] PRN Reason: Protocol Last Admin: 01/26/17 09:18 Dose: 40 mg Insulin Detemir (Levemir) 7 unit SC Q12 [facility] Last Admin: 01/26/17 09:22 Dose: 7 unit Insulin Human Regular (Humulin R Med) 0 units SC ACHS [facility] PRN Reason: Protocol Last Admin: 01/26/17 11:45 Dose: 10 units Methylprednisolone (Solu-Medrol) 40 mg IVP Q8H [facility] Last Admin: 01/26/17 06:09 Dose: 40 mg Pantoprazole Sodium (Protonix Ec Tab) 40 mg PO ACB [facility] Last Admin: 01/26/17 08:11 Dose: 40 mg - Labs Labs: 01/26/17 08:11 01/26/17 08:11 PT 10.4 Seconds (9.9-11.8) 01/23/17 22:09 INR 0.96 (0.93-1.08) 01/23/17 22:09 APTT 26.1 Seconds (23.7-30.8) 01/23/17 22:09 Attending/Attestation - Attestation I have personally seen and examined this patient.: Yes I have fully participated in the care of the patient.: Yes I have reviewed all pertinent clinical information, including history, physical exam and plan: Yes Notes (Text): I have seen and examined the patient at bedside. This is 81 year old female with past medical history of asthma, HTN, DM and PE who got admitted for asthma exacerbation. She continues to have significant wheezing. Will increase steroids to TID. Continue duonebs, pulmicort and brovana. Pulmonary consult appreciated. She was also found to have solitary lung nodule 5 mm spiculated. She needs to have a repeat CT chest in 3months for surveillance. Upon admission , she had a leukocytosis. Continue doxycycline. Also found to have uncontrolled DM. HBA1C is 10.3. Levemir 7 units q12 added. Diabetic counselling given. She needs to learn how to self inject insulin. Discussed with the daughter in detail. Dr Nenita Crocker
[2017-01-25] MEDS: Insulin Detemir 100 units/ml Vial (Levemir) SC SCH (21:58)
[2017-01-26] MEDS: Albuterol-Ipratrop 3 mg / 0.5 (3 ml) UD IH SCH ×7 (01:24→23:42)
[2017-01-26] MEDS: MethylPREDNISolone 40 mg Vial IVP SCH ×3 (06:09→22:01)
[2017-01-26] MEDS: Budesonide 0.5 mg/2 ml Inhal Susp UD IH SCH ×2 (07:22→21:07)
[2017-01-26] MEDS: Insulin Reg-MEDIUM-Coverage SC SCH ×4 (08:11→21:35)
[2017-01-26] MEDS: Pantoprazole 40 mg EC Tab PO SCH (08:11)
[2017-01-26 08:22] LABS: BASO # 0.01 K/mm3 (0.0-2.0); BASO % 0.1 % (0.0-3.0); GRAN # 16.03 (1.4-6.5); GRAN % 91.6 % (50.0-68.0); HEMATOCRIT 38.8 % (36.0-48.0); LYMPH # 0.9 (1.2-3.4); LYMPH % 5.4 % (22.0-35.0); MEAN CELL VOLUME 82.7 fL (80.0-105.0); MEAN CORPUSCULAR HEMOGLOBIN 27.3 pg (25.0-35.0); MEAN PLATELET VOLUME 10.5 fl (7.0-11.0); MONO # 0.5 (0.1-0.6); MONO % 2.9 % (1.0-6.0); PLATELET COUNT 270 10^3/uL (120.0-450.0); RED CELL DISTRIBUTION WIDTH 14.2 % (11.5-14.5); WHITE BLOOD COUNT 17.5 10^3/ul (4.5-11.0)
[2017-01-26 08:29] LABS: ADD MANUAL DIFF? NO
[2017-01-26 08:33] LABS: ALB/GLOB RATIO 0.9 (1.1-1.8); ALKALINE PHOSPHATASE 99 U/L (38-133); ALT/SGPT 36 U/L (7-56); AST/SGOT 23 U/L (15-39); BILIRUBIN,TOTAL 0.6 mg/dL (0.2-1.3); BLOOD UREA NITROGEN 23 mg/dL (7-21); CALCIUM 9.5 mg/dL (8.4-10.5); CARBON DIOXIDE 29 mmol/L (21-33); CHLORIDE 97 mmol/L (95-110); GFR AFRICAN-AMERICAN > 60; POTASSIUM 4.4 mmol/L (3.6-5.0); SODIUM 134 mmol/L (132-148); TOTAL PROTEIN 7.6 g/dL (5.8-8.3)
[2017-01-26 08:50] LABS: GLUCOSE,RANDOM 328 mg/dL (70-110)
[2017-01-26] MEDS: Enoxaparin 40 mg Syringe SC SCH (09:18)
[2017-01-26] MEDS: Insulin Detemir 100 units/ml Vial (Levemir) SC SCH ×2 (09:22→21:33)
--- NOTE | 2017-01-26 21:20 | CP.PCM.PN ---
<Bruno Coffey - Last Filed: 01/26/17 21:15> Subjective - Date & Time of Evaluation Date of Evaluation: 01/26/17 Time of Evaluation: 09:40 - Subjective Subjective: PGY-1 Medicine progress note Patient seen and examined at bedside. No acute distress. Patient states that she is doing better and has mild wheezing. She denies any chest pain, abd pain, fever, chill, n/v. She reports occasional headache. Patient is tolerating diet. Objective - Vital Signs/Intake and Output Vital Signs (last 24 hours): Temp Pulse Resp BP Pulse Ox 97.5 F L 74 18 151/70 H 95 01/26/17 16:00 01/26/17 16:00 01/26/17 16:00 01/26/17 16:00 01/26/17 16:00 Intake and Output: 01/26/17 01/27/17 18:59 06:59 Intake Total 480 450 Balance 480 450 - Medications Medications: Current Medications Acetaminophen (Tylenol 325mg Tab) 650 mg PO Q4H PRN PRN Reason: Fever >100.4 F Last Admin: 01/26/17 06:09 Dose: 650 mg Albuterol Sulfate (Albuterol 0.042% Inhal Do (1.25mg/3ml) Ud) 1.25 mg IH Q3 PRN PRN Reason: Shortness of Breath Albuterol/Ipratropium (Duoneb 3 Mg/0.5 Mg (3 Ml) Ud) 3 ml IH [id number] [facility] Last Admin: 01/26/17 21:07 Dose: 3 ml Amlodipine Besylate (Norvasc) 10 mg PO DAILY [facility] Last Admin: 01/26/17 09:18 Dose: 10 mg Budesonide (Pulmicort Respules) 0.5 mg IH [id number] [facility] Last Admin: 01/26/17 21:07 Dose: 0.5 mg Diphenhydramine HCl (Benadryl) 25 mg PO HS PRN PRN Reason: Insomnia Last Admin: 01/25/17 21:57 Dose: 25 mg Doxycycline Hyclate (Doryx) 100 mg PO Q12 [facility] PRN Reason: Protocol Last Admin: 01/26/17 09:18 Dose: 100 mg Enoxaparin Sodium (Lovenox) 40 mg SC DAILY [facility] PRN Reason: Protocol Last Admin: 01/26/17 09:18 Dose: 40 mg Insulin Detemir (Levemir) 7 unit SC Q12 [facility] Last Admin: 01/26/17 09:22 Dose: 7 unit Insulin Human Regular (Humulin R Med) 0 units SC ACHS [facility] PRN Reason: Protocol Last Admin: 01/26/17 16:07 Dose: 8 units Methylprednisolone (Solu-Medrol) 40 mg IVP Q8H [facility] Last Admin: 01/26/17 14:16 Dose: 40 mg Pantoprazole Sodium (Protonix Ec Tab) 40 mg PO ACB [facility] Last Admin: 01/26/17 08:11 Dose: 40 mg - Labs Labs: 01/26/17 08:11 01/26/17 08:11 PT 10.4 Seconds (9.9-11.8) 01/23/17 22:09 INR 0.96 (0.93-1.08) 01/23/17 22:09 APTT 26.1 Seconds (23.7-30.8) 01/23/17 22:09 - Constitutional Appears: Well, No Acute Distress - Head Exam Head Exam: ATRAUMATIC, NORMOCEPHALIC - Eye Exam Eye Exam: Normal appearance - ENT Exam ENT Exam: Mucous Membranes Moist - Respiratory Exam Respiratory Exam: Wheezes (throughout lung field ), NORMAL BREATHING PATTERN. absent: Rales, Rhonchi, Respiratory Distress - Cardiovascular Exam Cardiovascular Exam: REGULAR RHYTHM. absent: Tachycardia, Murmur - GI/Abdominal Exam GI & Abdominal Exam: Soft, Normal Bowel Sounds. absent: Distended, Firm, Tenderness - Extremities Exam Extremities Exam: Normal Inspection. absent: Pedal Edema - Neurological Exam Neurological Exam: Alert, Awake, Oriented x3 - Skin Skin Exam: Dry, Intact, Normal Color, Warm Assessment and Plan - Assessment and Plan (Free Text) Assessment: 81 year old female with past medical history of asthma, HTN, DM and PE was admitted for asthma exacerbation, possibly 2/2 CAP. Plan: 1. Asthma exacerbation - conts to having wheezes - CXR showed no active disease - CT chest showed no evidence of PE, possible early interstitial edema, indeterminate pulmonary nodule (please see full report) - cont Albuterol 1.25mg q3/2.5mg q6 prn - cont pulmicort 0.5mg q12h, Brovana 15mcg q12h - cont solu- medrol 40 mg q8 - echo showed EF of 71%, moderate pulmonary HTN, mild left ventricular hypertrophy - TSH wnl - pulm following, Dr. Crocker -SOB improving, with baseline wheezing -On Empiric Abx with, Viral Panel pending -PFT 2 weeks post discharge to quanify her Asthma/monitor meds - outpatient CT chest in 3 mo for pulm nodule 2. Leukocytosis - WBC 17.5, afebrile, most likely due to steroids - blood culture neg after 48 ho - procal low - cont doxycylcine 3. Diabetes - not on home meds - Consistent carbohydrate diet - hgbA1c 10.3 - started levemir 7 units q12 - ISSS- med - diabetic education on injectable insulin 4. Hypertension - cont home Norvasc pt to be transferred to TCU on Saturday Prophylactic measures -Protonix for GI ppx -Lovenox for DVT ppx <Nenita Crocker - Last Filed: 01/27/17 15:51> Objective - Vital Signs/Intake and Output Vital Signs (last 24 hours): Temp Pulse Resp BP Pulse Ox 98.0 F 73 18 152/81 H 95 01/27/17 07:59 01/27/17 07:59 01/27/17 07:59 01/27/17 09:22 01/27/17 07:59 Intake and Output: 01/27/17 01/27/17 06:59 18:59 Intake Total 970 600 Balance 970 600 - Medications Medications: Current Medications Acetaminophen (Tylenol 325mg Tab) 650 mg PO Q4H PRN PRN Reason: Fever >100.4 F Last Admin: 01/27/17 04:35 Dose: 650 mg Albuterol Sulfate (Albuterol 0.042% Inhal Do (1.25mg/3ml) Ud) 1.25 mg IH Q3 PRN PRN Reason: Shortness of Breath Albuterol/Ipratropium (Duoneb 3 Mg/0.5 Mg (3 Ml) Ud) 3 ml IH [id number] [facility] Last Admin: 01/27/17 15:22 Dose: 3 ml Amlodipine Besylate (Norvasc) 10 mg PO DAILY [facility] Last Admin: 01/27/17 09:22 Dose: 10 mg Budesonide (Pulmicort Respules) 0.5 mg IH [id number] [facility] Last Admin: 01/27/17 08:03 Dose: 0.5 mg Diphenhydramine HCl (Benadryl) 25 mg PO HS PRN PRN Reason: Insomnia Last Admin: 01/26/17 21:33 Dose: 25 mg Doxycycline Hyclate (Doryx) 100 mg PO Q12 [facility] PRN Reason: Protocol Last Admin: 01/27/17 09:23 Dose: 100 mg Enoxaparin Sodium (Lovenox) 40 mg SC DAILY [facility] PRN Reason: Protocol Last Admin: 01/27/17 09:22 Dose: 40 mg Guaifenesin (Mucinex La) 600 mg PO BID [facility] Insulin Detemir (Levemir) 10 unit SC Q12 [facility] Last Admin: 01/27/17 09:23 Dose: 10 unit Insulin Human Regular (Humulin R Med) 0 units SC ACHS [facility] PRN Reason: Protocol Last Admin: 01/27/17 11:29 Dose: 8 units Lisinopril (Zestril) 5 mg PO DAILY [facility] Last Admin: 01/27/17 09:22 Dose: 5 mg Methylprednisolone (Solu-Medrol) 40 mg IVP Q12 [facility] Pantoprazole Sodium (Protonix Ec Tab) 40 mg PO ACB [facility] Last Admin: 01/27/17 08:47 Dose: 40 mg Zolpidem Tartrate (Ambien) 5 mg PO HS PRN; Protocol PRN Reason: Insomnia - Labs Labs: 01/27/17 07:00 01/27/17 07:00 PT 10.4 Seconds (9.9-11.8) 01/23/17 22:09 INR 0.96 (0.93-1.08) 01/23/17 22:09 APTT 26.1 Seconds (23.7-30.8) 01/23/17 22:09 Attending/Attestation - Attestation I have personally seen and examined this patient.: Yes I have fully participated in the care of the patient.: Yes I have reviewed all pertinent clinical information, including history, physical exam and plan: Yes Notes (Text): I have seen and examined the patient at bedside. This is 81 year old female with past medical history of asthma, HTN, DM-2 and PE who got admitted for asthma exacerbation. Her wheezing has slightly improved. Will continue solumedrol, duonebs, pulmicort and brovana. Pulmonary consult appreciated. She was also found to have solitary lung nodule 5 mm spiculated. She needs to have a repeat CT chest in 3months for surveillance. Upon admission, she had a leukocytosis. Continue doxycycline. Also found to have uncontrolled DM. HBA1C is 10.3. Levemir was increased to 7 units q12. Diabetic counselling given. She needs to learn how to self inject insulin. Patient lives in [place] and visits [place] only in summer. Plan to transfer to TCU tomorrow. Echo showed EF~71%, moderate pulmonary hypertension and LVH. Patient should follow up with prosthetic lab technician for outpatient PFT. Upon discharge patient will follow up with Dr Quick. Dr Nenita Crocker
[2017-01-27] MEDS: Albuterol-Ipratrop 3 mg / 0.5 (3 ml) UD IH SCH ×5 (04:40→21:54)
[2017-01-27] MEDS: MethylPREDNISolone 40 mg Vial IVP SCH ×3 (06:31→22:30)
[2017-01-27 07:34] LABS: ADD MANUAL DIFF? NO
[2017-01-27 07:56] LABS: ALB/GLOB RATIO 0.9 (1.1-1.8); ALKALINE PHOSPHATASE 90 U/L (38-133); ALT/SGPT 31 U/L (7-56); AST/SGOT 21 U/L (15-39); BILIRUBIN,TOTAL 0.7 mg/dL (0.2-1.3); BLOOD UREA NITROGEN 21 mg/dL (7-21); CALCIUM 9.5 mg/dL (8.4-10.5); CARBON DIOXIDE 29 mmol/L (21-33); CHLORIDE 97 mmol/L (98-107); GFR AFRICAN-AMERICAN > 60; POTASSIUM 4.6 mmol/L (3.6-5.0); SODIUM 135 mmol/L (132-148); TOTAL PROTEIN 7.6 g/dL (5.8-8.3)
[2017-01-27 07:57] LABS: BASO # 0.01 K/mm3 (0.0-2.0); BASO % 0.1 % (0.0-3.0); GLUCOSE,RANDOM 334 mg/dL (70-110); GRAN # 13.09 (1.4-6.5); GRAN % 89.4 % (50.0-68.0); HEMATOCRIT 39.3 % (36.0-48.0); LYMPH % 6.7 % (22.0-35.0); MEAN CELL VOLUME 82.6 fL (80.0-105.0); MEAN CORPUSCULAR HEMOGLOBIN 26.9 pg (25.0-35.0); MEAN CORPUSCULAR HGB CONC 32.6 g/dl (31.0-37.0); MEAN PLATELET VOLUME 10.5 fl (7.0-11.0); MONO # 0.6 (0.1-0.6); MONO % 3.8 % (1.0-6.0); PLATELET COUNT 264 10^3/uL (120.0-450.0); RED CELL DISTRIBUTION WIDTH 14.2 % (11.5-14.5); WHITE BLOOD COUNT 14.6 10^3/ul (4.5-11.0)
[2017-01-27] MEDS: Budesonide 0.5 mg/2 ml Inhal Susp UD IH SCH ×2 (08:03→21:55)
[2017-01-27] MEDS: Insulin Reg-MEDIUM-Coverage SC SCH ×4 (08:09→22:29)
[2017-01-27] MEDS: Pantoprazole 40 mg EC Tab PO SCH (08:47)
[2017-01-27] MEDS: Enoxaparin 40 mg Syringe SC SCH (09:22)
[2017-01-27] MEDS: Insulin Detemir 100 units/ml Vial (Levemir) SC SCH ×2 (09:23→22:30)
[2017-01-27] MEDS ORDERED: MethylPREDNISolone 40 mg Vial IVP SCH (10:00)
--- NOTE | 2017-01-27 14:15 | CP.PCM.PN ---
<Bruno Coffey - Last Filed: 01/27/17 14:11> Subjective - Date & Time of Evaluation Date of Evaluation: 01/27/17 Time of Evaluation: 14:15 - Subjective Subjective: PGY-1 Medicine progress note Patient seen and examined at bedside. No acute distress. She only complains of a productive cough with clear sputum and no sore throat/fever/chills She has no other complaints at this time and is tolerating her diet. She denies any headache, chest pain, abd pain, nausea, vomiting, diarrhea or GI/ symptoms. Objective - Vital Signs/Intake and Output Vital Signs (last 24 hours): Temp Pulse Resp BP Pulse Ox 98.0 F 73 18 152/81 H 95 01/27/17 07:59 01/27/17 07:59 01/27/17 07:59 01/27/17 09:22 01/27/17 07:59 Intake and Output: 01/27/17 01/27/17 06:59 18:59 Intake Total 970 Balance 970 - Medications Medications: Current Medications Acetaminophen (Tylenol 325mg Tab) 650 mg PO Q4H PRN PRN Reason: Fever >100.4 F Last Admin: 01/27/17 04:35 Dose: 650 mg Albuterol Sulfate (Albuterol 0.042% Inhal Do (1.25mg/3ml) Ud) 1.25 mg IH Q3 PRN PRN Reason: Shortness of Breath Albuterol/Ipratropium (Duoneb 3 Mg/0.5 Mg (3 Ml) Ud) 3 ml IH [id number] [facility] Last Admin: 01/27/17 11:45 Dose: 3 ml Amlodipine Besylate (Norvasc) 10 mg PO DAILY [facility] Last Admin: 01/27/17 09:22 Dose: 10 mg Budesonide (Pulmicort Respules) 0.5 mg IH [id number] [facility] Last Admin: 01/27/17 08:03 Dose: 0.5 mg Diphenhydramine HCl (Benadryl) 25 mg PO HS PRN PRN Reason: Insomnia Last Admin: 01/26/17 21:33 Dose: 25 mg Doxycycline Hyclate (Doryx) 100 mg PO Q12 [facility] PRN Reason: Protocol Last Admin: 01/27/17 09:23 Dose: 100 mg Enoxaparin Sodium (Lovenox) 40 mg SC DAILY [facility] PRN Reason: Protocol Last Admin: 01/27/17 09:22 Dose: 40 mg Insulin Detemir (Levemir) 10 unit SC Q12 [facility] Last Admin: 01/27/17 09:23 Dose: 10 unit Insulin Human Regular (Humulin R Med) 0 units SC ACHS [facility] PRN Reason: Protocol Last Admin: 01/27/17 11:29 Dose: 8 units Lisinopril (Zestril) 5 mg PO DAILY [facility] Last Admin: 01/27/17 09:22 Dose: 5 mg Methylprednisolone (Solu-Medrol) 40 mg IVP Q12 [facility] Pantoprazole Sodium (Protonix Ec Tab) 40 mg PO ACB [facility] Last Admin: 01/27/17 08:47 Dose: 40 mg - Labs Labs: 01/27/17 07:00 01/27/17 07:00 PT 10.4 Seconds (9.9-11.8) 01/23/17 22:09 INR 0.96 (0.93-1.08) 01/23/17 22:09 APTT 26.1 Seconds (23.7-30.8) 01/23/17 22:09 - Constitutional Appears: Non-toxic, No Acute Distress - Head Exam Head Exam: ATRAUMATIC, NORMOCEPHALIC - Eye Exam Eye Exam: EOMI - ENT Exam ENT Exam: Mucous Membranes Moist - Neck Exam Neck Exam: Full ROM, Normal Inspection. absent: Lymphadenopathy, Thyromegaly - Respiratory Exam Respiratory Exam: Rhonchi (mild), Wheezes (mild), NORMAL BREATHING PATTERN - Cardiovascular Exam Cardiovascular Exam: REGULAR RHYTHM, JVD. absent: +S1, +S2 - GI/Abdominal Exam GI & Abdominal Exam: Soft, Normal Bowel Sounds. absent: Tenderness - Extremities Exam Extremities Exam: Full ROM. absent: Joint Swelling, Pedal Edema - Neurological Exam Neurological Exam: Alert, Awake, CN II-XII Intact, Normal Gait, Oriented x3 - Psychiatric Exam Psychiatric exam: Normal Affect, Normal Mood - Skin Skin Exam: Dry, Intact, Normal Color, Warm Assessment and Plan - Assessment and Plan (Free Text) Assessment: 81 year old female with past medical history of asthma, HTN, DM and PE was admitted for asthma exacerbation, possibly 2/2 CAP. Plan: 1. Asthma exacerbation - conts to having wheezes - CXR showed no active disease - CT chest showed no evidence of PE, possible early interstitial edema, indeterminate pulmonary nodule (please see full report) - cont Albuterol 1.25mg q3/2.5mg q6 prn - cont pulmicort 0.5mg q12h, Brovana 15mcg q12h - cont solu- medrol 40 mg q8 - echo showed EF of 71%, moderate pulmonary HTN, mild left ventricular hypertrophy - TSH wnl - pulm following, Dr. Crocker -SOB improving, with baseline wheezing -On Empiric Abx with, Viral Panel pending -PFT 2 weeks post discharge to quanify her Asthma/monitor meds - outpatient CT chest in 3 mo for pulm nodule 2. Leukocytosis - WBC 14.6, afebrile, most likely due to steroids - blood culture neg after 3 days - procal low - cont doxycylcine 3. Diabetes - not on home meds - Consistent carbohydrate diet - hgbA1c 10.3 - started levemir 7 units q12 - ISSS- med - diabetic education on injectable insulin - added Levemir 10u q12 - added lisinopril 5mg daily 4. Hypertension - cont home Norvasc pt to be transferred to TCU on Saturday. Prophylactic measures -Protonix for GI ppx -Lovenox for DVT ppx <Nenita Crocker B - Last Filed: 01/27/17 15:57> Objective - Vital Signs/Intake and Output Vital Signs (last 24 hours): Temp Pulse Resp BP Pulse Ox 98.0 F 73 18 152/81 H 95 01/27/17 07:59 01/27/17 07:59 01/27/17 07:59 01/27/17 09:22 01/27/17 07:59 Intake and Output: 01/27/17 01/27/17 06:59 18:59 Intake Total 970 600 Balance 970 600 - Medications Medications: Current Medications Acetaminophen (Tylenol 325mg Tab) 650 mg PO Q4H PRN PRN Reason: Fever >100.4 F Last Admin: 01/27/17 04:35 Dose: 650 mg Albuterol Sulfate (Albuterol 0.042% Inhal Do (1.25mg/3ml) Ud) 1.25 mg IH Q3 PRN PRN Reason: Shortness of Breath Albuterol/Ipratropium (Duoneb 3 Mg/0.5 Mg (3 Ml) Ud) 3 ml IH [id number] [facility] Last Admin: 01/27/17 15:22 Dose: 3 ml Amlodipine Besylate (Norvasc) 10 mg PO DAILY [facility] Last Admin: 01/27/17 09:22 Dose: 10 mg Budesonide (Pulmicort Respules) 0.5 mg IH [id number] [facility] Last Admin: 01/27/17 08:03 Dose: 0.5 mg Diphenhydramine HCl (Benadryl) 25 mg PO HS PRN PRN Reason: Insomnia Last Admin: 01/26/17 21:33 Dose: 25 mg Doxycycline Hyclate (Doryx) 100 mg PO Q12 [facility] PRN Reason: Protocol Last Admin: 01/27/17 09:23 Dose: 100 mg Enoxaparin Sodium (Lovenox) 40 mg SC DAILY [facility] PRN Reason: Protocol Last Admin: 01/27/17 09:22 Dose: 40 mg Guaifenesin (Mucinex La) 600 mg PO BID [facility] Insulin Detemir (Levemir) 10 unit SC Q12 [facility] Last Admin: 01/27/17 09:23 Dose: 10 unit Insulin Human Regular (Humulin R Med) 0 units SC ACHS [facility] PRN Reason: Protocol Last Admin: 01/27/17 11:29 Dose: 8 units Lisinopril (Zestril) 5 mg PO DAILY [facility] Last Admin: 01/27/17 09:22 Dose: 5 mg Methylprednisolone (Solu-Medrol) 40 mg IVP Q12 [facility] Pantoprazole Sodium (Protonix Ec Tab) 40 mg PO ACB [facility] Last Admin: 01/27/17 08:47 Dose: 40 mg Zolpidem Tartrate (Ambien) 5 mg PO HS PRN; Protocol PRN Reason: Insomnia - Labs Labs: 01/27/17 07:00 01/27/17 07:00 PT 10.4 Seconds (9.9-11.8) 01/23/17 22:09 INR 0.96 (0.93-1.08) 01/23/17 22:09 APTT 26.1 Seconds (23.7-30.8) 01/23/17 22:09 Attending/Attestation - Attestation I have personally seen and examined this patient.: Yes I have fully participated in the care of the patient.: Yes I have reviewed all pertinent clinical information, including history, physical exam and plan: Yes Notes (Text): I have seen and examined the patient at bedside. This is 81 year old female with past medical history of asthma, HTN, DM-2 (not on meds) and PE who got admitted for asthma exacerbation. Her wheezing has significantly improved. Will taper solumedrol today. Continue duonebs, pulmicort and brovana. Pulmonary consult appreciated. She is found to have solitary lung nodule 5 mm spiculated and needs to have a repeat CT chest in 3months for surveillance. She also has leukocytosis which can be secondary to steroids. Continue doxycycline. Also found to have uncontrolled DM. HBA1C is 10.3. Pateint was not taking any meds or insulin at home. Levemir was increased to 10 units q12. Diabetic counselling given. She needs to learn how to self inject insulin. Patient lives in [place] and visits [place] only in summer. Initially there was a plan to go to TCU today however patient wants to go home. One of patients daughter who is diabetic will be living with patient and will take care of insulin injections. Echo showed EF~71%, moderate pulmonary hypertension and LVH. Plan to discharge home tomorrow. Patient should follow up with canvassing manager for outpatient PFT. Upon discharge patient will follow up with Dr Quick. Dr Nenita Crocker
[2017-01-27 16:14] VITALS: O2SAT 94
[2017-01-27] MEDS: guaiFENesin 600 mg ER Tab PO SCH (18:08)
[2017-01-28] MEDS: Albuterol-Ipratrop 3 mg / 0.5 (3 ml) UD IH SCH ×4 (01:33→12:41)
[2017-01-28 06:48] LABS: ADD MANUAL DIFF? NO
[2017-01-28 07:16] LABS: GRAN # 10.75 (1.4-6.5); GRAN % 88.3 % (50.0-68.0); LYMPH # 0.9 (1.2-3.4); LYMPH % 7.4 % (22.0-35.0); MEAN CELL VOLUME 83.2 fL (80.0-105.0); MEAN CORPUSCULAR HEMOGLOBIN 27.2 pg (25.0-35.0); MEAN CORPUSCULAR HGB CONC 32.8 g/dl (31.0-37.0); MEAN PLATELET VOLUME 10.1 fl (7.0-11.0); MONO # 0.5 (0.1-0.6); MONO % 4.3 % (1.0-6.0); PLATELET COUNT 276 10^3/uL (120.0-450.0); RED CELL DISTRIBUTION WIDTH 14.4 % (11.5-14.5); WHITE BLOOD COUNT 12.2 10^3/ul (4.5-11.0)
[2017-01-28 07:38] LABS: ALB/GLOB RATIO 1.1 (1.1-1.8); ALKALINE PHOSPHATASE 83 U/L (38-133); ALT/SGPT 37 U/L (7-56); AST/SGOT 18 U/L (15-39); BILIRUBIN,TOTAL 0.7 mg/dL (0.2-1.3); BLOOD UREA NITROGEN 24 mg/dL (7-21); CALCIUM 9.3 mg/dL (8.4-10.5); CARBON DIOXIDE 28 mmol/L (21-33); CHLORIDE 98 mmol/L (98-107); GFR AFRICAN-AMERICAN > 60; POTASSIUM 4.6 mmol/L (3.6-5.0); SODIUM 136 mmol/L (132-148); TOTAL PROTEIN 7.2 g/dL (5.8-8.3)
[2017-01-28 08:08] LABS: GLUCOSE,RANDOM 342 mg/dL (70-110)
[2017-01-28] MEDS: Pantoprazole 40 mg EC Tab PO SCH (08:30)
[2017-01-28] MEDS: Insulin Reg-MEDIUM-Coverage SC SCH ×2 (08:30→12:30)
[2017-01-28 08:40] VITALS: BP 140/63; PULSE 71; RESP 19; TEMP 98.1
[2017-01-28] MEDS: Budesonide 0.5 mg/2 ml Inhal Susp UD IH SCH (09:06)
[2017-01-28] MEDS: Enoxaparin 40 mg Syringe SC SCH (09:54)
[2017-01-28] MEDS: MethylPREDNISolone 40 mg Vial IVP SCH (09:54)
[2017-01-28] MEDS: Insulin Detemir 100 units/ml Vial (Levemir) SC SCH (09:55)
[2017-01-28] MEDS: guaiFENesin 600 mg ER Tab PO SCH (10:01)
[2017-01-28] MEDS ORDERED: Insulin Detemir 100 units/ml Vial (Levemir) SC SCH (11:25)
--- NOTE | 2017-01-28 14:51 | CP.PCM.DIS ---
<Jyoti Crowe - Last Filed: 01/28/17 16:04> Provider - Provider Date of Admission: 01/24/17 16:28 Attending physician: Tony Singh MD Time Spent in preparation of Discharge (in minutes): 60 Hospital Course - Lab Results Lab Results: Most Recent Lab Values WBC 12.2 10^3/ul (4.5-11.0) H 01/28/17 06:30 RBC 4.81 10^6/uL (3.5-6.1) 01/28/17 06:30 Hgb 13.1 gm/dL (12.0-16.0) 01/28/17 06:30 Hct 40.0 % (36.0-48.0) 01/28/17 06:30 MCV 83.2 fL (80.0-105.0) 01/28/17 06:30 MCH 27.2 pg (25.0-35.0) 01/28/17 06:30 MCHC 32.8 g/dl (31.0-37.0) 01/28/17 06:30 RDW 14.4 % (11.5-14.5) 01/28/17 06:30 Plt Count 276 10^3/uL (120.0-450.0) 01/28/17 06:30 MPV 10.1 fl (7.0-11.0) 01/28/17 06:30 Gran % 88.3 % (50.0-68.0) H 01/28/17 06:30 Lymph % (Auto) 7.4 % (22.0-35.0) L 01/28/17 06:30 [place] % (Auto) 4.3 % (1.0-6.0) 01/28/17 06:30 Eos % (Auto) 0.0 % (1.5-5.0) L 01/28/17 06:30 Baso % (Auto) 0.0 % (0.0-3.0) 01/28/17 06:30 Gran # 10.75 (1.4-6.5) H 01/28/17 06:30 Lymph # 0.9 (1.2-3.4) L 01/28/17 06:30 [place] # 0.5 (0.1-0.6) 01/28/17 06:30 Eos # 0.0 (0.0-0.7) 01/28/17 06:30 Baso # 0.00 K/mm3 (0.0-2.0) 01/28/17 06:30 PT 10.4 Seconds (9.9-11.8) 01/23/17 22:09 INR 0.96 (0.93-1.08) 01/23/17 22:09 APTT 26.1 Seconds (23.7-30.8) 01/23/17 22:09 pO2 165 mm/Hg (30-55) H 01/24/17 00:50 VBG pH 7.40 (7.32-7.43) 01/24/17 00:50 VBG pCO2 50.0 (40-60) 01/24/17 00:50 VBG HCO3 31.0 mmol/l (21-28) H 01/24/17 00:50 VBG Total CO2 32.5 mmol.L (22-28) H 01/24/17 00:50 VBG O2 Sat (Calc) 98.5 % (40-65) H 01/24/17 00:50 VBG Base Excess 5.0 mmol/L (0.0-2.0) H 01/24/17 00:50 VBG Potassium 4.0 mmol/L (3.6-5.2) 01/24/17 00:50 Sodium 138.0 mmol/L (132-148) 01/24/17 00:50 Chloride 102.0 mmol/L (98-107) 01/24/17 00:50 Glucose 347 mg/dl (65-105) H 01/24/17 00:50 Lactate 2.2 mmol/L (0.7-2.1) H 01/24/17 00:50 FiO2 21.0 % 01/24/17 00:50 Sodium 136 mmol/L (132-148) 01/28/17 06:30 Potassium 4.6 mmol/L (3.6-5.0) 01/28/17 06:30 Chloride 98 mmol/L (98-107) 01/28/17 06:30 Carbon Dioxide 28 mmol/L (21-33) 01/28/17 06:30 Anion Gap 15 (10-20) 01/28/17 06:30 BUN 24 mg/dL (7-21) H 01/28/17 06:30 Creatinine 0.6 mg/dL (0.5-1.4) 01/28/17 06:30 Est GFR ( Amer) > 60 01/28/17 06:30 Est GFR (Non-Af Amer) > 60 01/28/17 06:30 POC Glucose (mg/dL) 408 mg/dL (65-110) H* 01/25/17 07:21 Random Glucose 342 mg/dL (70-110) H* 01/28/17 06:30 Hemoglobin A1c 10.3 % (4.2-6.5) H 01/24/17 05:44 Calcium 9.3 mg/dL (8.4-10.5) 01/28/17 06:30 Total Bilirubin 0.7 mg/dL (0.2-1.3) 01/28/17 06:30 AST 18 U/L (15-39) 01/28/17 06:30 ALT 37 U/L (7-56) 01/28/17 06:30 Alkaline Phosphatase 83 U/L (38-133) 01/28/17 06:30 Lactate Dehydrogenase 525 U/L (333-699) 01/23/17 21:25 Total Creatine Kinase 90 U/L (35-230) 01/23/17 21:25 Troponin I 0.02 ng/mL D 01/24/17 05:44 NT-Pro-B Natriuret Pep 160 pg/mL (0-450) 01/23/17 21:25 Total Protein 7.2 g/dL (5.8-8.3) 01/28/17 06:30 Albumin 3.7 g/dL (3.0-4.8) 01/28/17 06:30 Globulin 3.5 gm/dL 01/28/17 06:30 Albumin/Globulin Ratio 1.1 (1.1-1.8) 01/28/17 06:30 Vitamin B12 296 pg/mL (239-931) 01/24/17 05:44 Procalcitonin < 0.05 NG/ML (0.19-0.49) L 01/24/17 07:50 TSH 3rd Generation 0.49 mIU/mL (0.46-4.68) 01/24/17 05:44 Venous Blood Potassium 4.0 mmol/L (3.6-5.2) 01/24/17 00:50 - Hospital Course Hospital Course: 81 year old female with past medical history of asthma, HTN, DM and PE was admitted for asthma exacerbation. Patient presented with wheezing and SOB. CXR showed no active disease. CT chest showed no evidence of PE, possible early interstitial edema, indeterminate pulmonary nodule. Patient was given breathing treatment, antibiotics and solu-medrol. Echo showed EF of 71%, moderate pulmonary HTN, mild left ventricular hypertrophy. TSH was within normal limits. Pulm was consulted, recommended PFT 2 weeks post discharge, and outpatient CT chest in 3 mo to [facility] for pulm nodule. Blood culture neg after 3 days, procal low. Blood pressure was elevated and she was started on lisinopril. Patient was found to have elevated blood glucose. She has a history of diabetes but has not been taking any medications. hgbA1c was 10.3 and she was started on insulin and levemir. Diabetic education nurse was consulted. Patient and family states that patient is having difficulty seeing, patient is elderly and leaves with elderly . Patient requires assistance with injectable insulin management. Patient is stable for discharge home, wheezing has improved. Patient is to follow up with PMD, Dr. Quick in 1 week and follow up with pulm, she will need CT chest in 3 mo for lung nodule. Patient is to check blood sugar at home and follow up with diabetic nurse. New medications were sent to pharmacy. Discharge plan was discussed with patient and family in detail, they are in agreement. Discharge Exam - Head Exam Head Exam: ATRAUMATIC, NORMOCEPHALIC - Eye Exam Eye Exam: Normal appearance - ENT Exam ENT Exam: Mucous Membranes Moist - Respiratory Exam Respiratory Exam: Wheezes (near baseline), NORMAL BREATHING PATTERN, UNREMARKABLE. absent: Rales, Rhonchi, Respiratory Distress - Cardiovascular Exam Cardiovascular Exam: REGULAR RHYTHM. absent: Tachycardia, Systolic Murmur - GI/Abdominal Exam GI & Abdominal Exam: Normal Bowel Sounds, Soft, Unremarkable. absent: Firm, Guarding, Hernia, Tenderness - Extremities Exam Extremities exam: normal inspection - Neurological Exam Neurological exam: Alert, Oriented x3 - Skin Skin Exam: Dry, Intact, Normal Color, Warm Discharge Plan - Discharge Medications Prescriptions: Albuterol HFA [Ventolin HFA 90 mcg/actuation (8 g)] 2 puff IH [id number] PRN #1 puff PRN Reason: Shortness Of Breath Insulin Detemir [Levemir] 15 unit SC Q12 #600 unit Lisinopril [Zestril] 5 mg PO DAILY #20 tab metFORMIN [glucOPHAGE] 500 mg PO BID #30 tab Methylprednisolone [Medrol Dose Pack (21 tabs)] 4 mg PO DAILY #21 mg - Follow Up Plan Condition: FAIR Disposition: HOME/ ROUTINE Instructions: Insulin Human Regular (By injection), Asthma (DC), How to Check Your Blood Sugar (DC), Diabetes Mellitus Type 1 in Adults (DC), COPD (Chronic Obstructive Pulmonary Disease) (DC), Basic Carbohydrate Counting (DC), Meal Planning with the Plate Method (DC), Pulmonary Arterial Hypertension (DC), Computed Tomography Scan (DC) Additional Instructions: Patient is stable for discharge home - follow up with PMD, Dr. Quick in 1 week - follow up with pulm, will need CT chest in 3 mo for lung nodule - patient is to check blood sugar at home and follow up with diabetic nurse New mediations - medrol dose pack - albuterol HFA - lisinopril 5 mg daily - levemir 15 units q12 - metformin 500 BID Referrals: Nguyen Hurtado RN [Occ Med Physician] - Andrade Mcgovern MD [Staff Provider] - <Tony Singh - Last Filed: 01/28/17 16:42> Provider - Provider Date of Admission: 01/24/17 16:28 Attending physician: Tony Singh MD Hospital Course - Lab Results Lab Results: Most Recent Lab Values WBC 12.2 10^3/ul (4.5-11.0) H 01/28/17 06:30 RBC 4.81 10^6/uL (3.5-6.1) 01/28/17 06:30 Hgb 13.1 gm/dL (12.0-16.0) 01/28/17 06:30 Hct 40.0 % (36.0-48.0) 01/28/17 06:30 MCV 83.2 fL (80.0-105.0) 01/28/17 06:30 MCH 27.2 pg (25.0-35.0) 01/28/17 06:30 MCHC 32.8 g/dl (31.0-37.0) 01/28/17 06:30 RDW 14.4 % (11.5-14.5) 01/28/17 06:30 Plt Count 276 10^3/uL (120.0-450.0) 01/28/17 06:30 MPV 10.1 fl (7.0-11.0) 01/28/17 06:30 Gran % 88.3 % (50.0-68.0) H 01/28/17 06:30 Lymph % (Auto) 7.4 % (22.0-35.0) L 01/28/17 06:30 [place] % (Auto) 4.3 % (1.0-6.0) 01/28/17 06:30 Eos % (Auto) 0.0 % (1.5-5.0) L 01/28/17 06:30 Baso % (Auto) 0.0 % (0.0-3.0) 01/28/17 06:30 Gran # 10.75 (1.4-6.5) H 01/28/17 06:30 Lymph # 0.9 (1.2-3.4) L 01/28/17 06:30 [place] # 0.5 (0.1-0.6) 01/28/17 06:30 Eos # 0.0 (0.0-0.7) 01/28/17 06:30 Baso # 0.00 K/mm3 (0.0-2.0) 01/28/17 06:30 PT 10.4 Seconds (9.9-11.8) 01/23/17 22:09 INR 0.96 (0.93-1.08) 01/23/17 22:09 APTT 26.1 Seconds (23.7-30.8) 01/23/17 22:09 pO2 165 mm/Hg (30-55) H 01/24/17 00:50 VBG pH 7.40 (7.32-7.43) 01/24/17 00:50 VBG pCO2 50.0 (40-60) 01/24/17 00:50 VBG HCO3 31.0 mmol/l (21-28) H 01/24/17 00:50 VBG Total CO2 32.5 mmol.L (22-28) H 01/24/17 00:50 VBG O2 Sat (Calc) 98.5 % (40-65) H 01/24/17 00:50 VBG Base Excess 5.0 mmol/L (0.0-2.0) H 01/24/17 00:50 VBG Potassium 4.0 mmol/L (3.6-5.2) 01/24/17 00:50 Sodium 138.0 mmol/L (132-148) 01/24/17 00:50 Chloride 102.0 mmol/L (98-107) 01/24/17 00:50 Glucose 347 mg/dl (65-105) H 01/24/17 00:50 Lactate 2.2 mmol/L (0.7-2.1) H 01/24/17 00:50 FiO2 21.0 % 01/24/17 00:50 Sodium 136 mmol/L (132-148) 01/28/17 06:30 Potassium 4.6 mmol/L (3.6-5.0) 01/28/17 06:30 Chloride 98 mmol/L (98-107) 01/28/17 06:30 Carbon Dioxide 28 mmol/L (21-33) 01/28/17 06:30 Anion Gap 15 (10-20) 01/28/17 06:30 BUN 24 mg/dL (7-21) H 01/28/17 06:30 Creatinine 0.6 mg/dL (0.5-1.4) 01/28/17 06:30 Est GFR ( Amer) > 60 01/28/17 06:30 Est GFR (Non-Af Amer) > 60 01/28/17 06:30 POC Glucose (mg/dL) 408 mg/dL (65-110) H* 01/25/17 07:21 Random Glucose 342 mg/dL (70-110) H* 01/28/17 06:30 Hemoglobin A1c 10.3 % (4.2-6.5) H 01/24/17 05:44 Calcium 9.3 mg/dL (8.4-10.5) 01/28/17 06:30 Total Bilirubin 0.7 mg/dL (0.2-1.3) 01/28/17 06:30 AST 18 U/L (15-39) 01/28/17 06:30 ALT 37 U/L (7-56) 01/28/17 06:30 Alkaline Phosphatase 83 U/L (38-133) 01/28/17 06:30 Lactate Dehydrogenase 525 U/L (333-699) 01/23/17 21:25 Total Creatine Kinase 90 U/L (35-230) 01/23/17 21:25 Troponin I 0.02 ng/mL D 01/24/17 05:44 NT-Pro-B Natriuret Pep 160 pg/mL (0-450) 01/23/17 21:25 Total Protein 7.2 g/dL (5.8-8.3) 01/28/17 06:30 Albumin 3.7 g/dL (3.0-4.8) 01/28/17 06:30 Globulin 3.5 gm/dL 01/28/17 06:30 Albumin/Globulin Ratio 1.1 (1.1-1.8) 01/28/17 06:30 Vitamin B12 296 pg/mL (239-931) 01/24/17 05:44 Procalcitonin < 0.05 NG/ML (0.19-0.49) L 01/24/17 07:50 TSH 3rd Generation 0.49 mIU/mL (0.46-4.68) 01/24/17 05:44 Venous Blood Potassium 4.0 mmol/L (3.6-5.2) 01/24/17 00:50 Attending/Attestation - Attestation I have personally seen and examined this patient.: Yes I have fully participated in the care of the patient.: Yes I have reviewed all pertinent clinical information, including history, physical exam and plan: Yes Notes (Text): 01/28/17 16:38 Attending note; Patient seen and examined with resident. This is a 81 year old female with past medical history of asthma, HTN, DM-2 ( not on meds) and PE who got admitted for asthma exacerbation. Her wheezing has significantly improved. Treated with duonebs, pulmicort and brovana and IV Solu-Medrol. Pulmonary consult appreciated. She is found to have solitary lung nodule 5 mm spiculated and needs to have a repeat CT chest in 3months for surveillance. She also has leukocytosis which can be secondary to steroids. Treated with by mouth doxycycline. Patient is afebrile and nontoxic. Also found to have uncontrolled DM. HBA1C is 10.3. Patient was not taking any meds or insulin at home. Started on Levemir 15 units q12. Diabetic counselling given. One of patients daughter who is diabetic will be living with patient and will take care of insulin injections. Home care arrangements for visiting Nurses done by anette trinh. Paperwork completed. Discharge home today. Patient should follow up with vitreo retinal surgeon for outpatient PFT. Upon discharge patient will follow up with Dr Quick. Diagnosis; COPD exacerbation Diabetes Noncompliance with follow-up Pulmonary nodule
== END 2017-01-28 13:58 | disposition home health service (06) | DRG 203 ==
LOC: ED 20:50 → ERH 23:51 → 2RNO 01-24 02:32 → OBSVTOIN 01-24 16:28 → 5RNO 01-25 18:57
PROVIDERS: ADMIT Internal Medicine; ATTEND Internal Medicine
DX: J45.901 Unspecified asthma with (acute) exacerbation (principal); E11.65 Type 2 diabetes mellitus with hyperglycemia; I27.2 Other secondary pulmonary hypertension; I10 Essential (primary) hypertension; D72.829 Elevated white blood cell count, unspecified; T38.0X5A Adverse effect of glucocorticoids and synthetic analogues, initial encounter; R91.1 Solitary pulmonary nodule; Z91.19 Patient's noncompliance with other medical treatment and regimen; Z82.5 Family history of asthma and other chronic lower respiratory diseases